=== PATIENT | female | born 1935 | race Caucasian/White ===

== ENCOUNTER → 2016-12-24 | Outpatient (CLI) | payer MEDICARE ==
[2016-12-24 22:45] LABS: BASOPHILS % (AUTO) 0.4 % (0-2); EOSINOPHILS # (AUTO) 0.2 T/MM3 (0-0.5); EOSINOPHILS % (AUTO) 2.1 % (0-4); HCT - HEMATOCRIT 40.1 % (36-46); HGB - HEMOGLOBIN 13.2 GM/DL (12-16); IMMATURE GRANULOCYTE # (AUTO) 0.01 T/MM3 (0.00-0.03); IMMATURE GRANULOCYTE % (AUTO) 0.1 % (0.0-0.5); LYMPHOCYTES # (AUTO) 1.4 T/MM3 (1-4.8); LYMPHOCYTES % (AUTO) 19.2 % (23-45); MEAN CORPUSCULAR HGB 30.6 UUG (26-34); MEAN CORPUSCULAR HGB CONC(MCHC 32.9 GM/DL (31-37); MEAN CORPUSCULAR VOLUME 92.8 UM3 (80-100); MEAN PLATELET VOLUME 10.6 UM3 (9.4-12.4); MONOCYTES # (AUTO) 0.6 T/MM3 (0-0.8); MONOCYTES % (AUTO) 7.6 % (0-9.0); NEUTROPHILS #(AUTO)-ABSOLUTE 5.3 T/MM3 (1.8-7.7); NEUTROPHILS % (AUTO) 70.6 % (33-66); RED BLOOD COUNT 4.32 M/MM3 (4.00-5.20); WBC - WHITE BLOOD COUNT 7.5 T/MM3 (4.5-11.0)
== END ==
LOC: LABN.PM 22:39
PROVIDERS: ATTEND Family Medicine
DX: R09.02 Hypoxemia (principal)
CPT/HCPCS: 83880; 85025; 85379